=== PATIENT | female | born 1955 | race Caucasian/White ===

== ENCOUNTER → 2019-06-27 13:00 | Outpatient (CLI) | payer BC, SELFPAY ==
--- NOTE | 2019-06-27 | DI.MRI.S_ITS ---
PROCEDURE: MRFOOT LT WO CON INDICATIONS: Unspecified injury of left foot, sequela TECHNIQUE: Noncontrast sagittal T1 spin echo and T2 fast spin echo with fat saturation, long-axis T1 spin echo and T2 fast spin echo with fat saturation, short-axis T1 spin echo and T2 fast spin echo with fat saturation through the forefoot. COMPARISON: None. FINDINGS: Image quality: Excellent. Bones and joints: No bone marrow contusions or metatarsal stress fractures. The sesamoid bones appear in expected positions, without internal edema. Moderate first MTP joint degeneration. Associated small joint effusion There is also diffuse interphalangeal mild generative spurring and sclerosis. Soft tissues: The visualized plantar foot muscles demonstrate normal signal and bulk. Visualized flexor and extensor tendons appear intact, without tenosynovitis. The distal insertions of the peroneus brevis and longus tendons appear intact. The principal Lisfranc ligament appears intact. No soft tissue ganglion cysts or bursal fluid collections. Sagittal images demonstrate no evidence for plantar plate tears. IMPRESSION: Overall, no acute abnormal signal changes. No evidence of metatarsal stress fracture. Degenerative changes as above Dictated by: Cosme Zabala M.D. on 06/27/2019 at 16:55 Approved by: Cosme Zabala M.D. on 06/27/2019 at 17:00
--- NOTE | 2019-06-27 | DI.MRI.S_ITS ---
PROCEDURE: MR ANKLE LT WO CON INDICATIONS: Unspecified injury of left foot, sequela TECHNIQUE: Noncontrast sagittal T1 spin echo and T2 fast spin echo with fat saturation, axial proton density fast spin echo and T2 fast spin echo with fat saturation, coronal T1 spin echo and T2 fast spin echo with fat saturation through the ankle/hindfoot. COMPARISON: None. FINDINGS: Image quality: Excellent. Bones and joints: No bone marrow contusions or fractures. No hindfoot coalitions. No osteochondral injuries of the talar dome. No pathologic joint effusions. Medial structures: The posterior tibialis, flexor digitorum longus, and flexor hallucis longus tendons are intact. There is mild posterior tibialis tenosynovitis The posterior tibial neurovascular bundle appears normal within the tarsal tunnel, without extrinsic mass effect. The deep layer (anterior and posterior tibiotalar ligaments) and superficial layer (tibionavicular, tibiospring, and tibiocalcaneal ligaments) of the deltoid ligament appear normal. The spring ligament components (superomedial calcaneonavicular, medioplantar oblique calcaneonavicular, and inferoplantar longitudinal ligaments) are intact. Lateral structures: The anterior talofibular, calcaneofibular, and posterior talofibular ligaments appear intact. More superiorly, the anterior and posterior tibiofibular ligaments appear intact, as is the intermalleolar ligament. The tibiofibular syndesmosis is normal in width at 2 mm or less. The peroneus longus and brevis tendons demonstrate normal location and morphology. There is mild overlying superficial subcutaneous edema Adjacent bony peroneal tubercle and retrotrochlear prominence are normal in size. The sinus tarsi demonstrates normal fatty signal, without edema, fibrosis, or cyst formation. Visualized sinus tarsi components (cervical ligament, interosseous talocalcaneal ligament, roots of the inferior extensor retinaculum) appear normal. The calcaneonavicular and calcaneocuboid components of the bifurcate ligament appear intact. The dorsal calcaneocuboid ligament appears intact. Anterior structures: The tibialis anterior, extensor hallucis longus, and extensor digitorum longus tendons appear intact. The dorsal talonavicular ligament appears intact. Posterior and plantar structures: Achilles tendon is intact. Medial and lateral bands of the plantar fascia are of normal thickness. No abductor digiti quinti muscle atrophy to suggest Valentino neuropathy. IMPRESSION: Mild superficial soft tissue edema overlying the peroneus tendons which otherwise appear grossly intact. Mild posterior tibialis tenosynovitis. Minimal distal Achilles insertional tendinopathy. Mild medial band plantar fasciitis. Dictated by: Cosme Zabala M.D. on 06/27/2019 at 15:21 Approved by: Cosme Zabala M.D. on 06/27/2019 at 16:16
== END ==
PROVIDERS: Family Provider Family Medicine; PCP Family Medicine; Visit Provider Podiatrist
DX: S99.922S Unspecified injury of left foot, sequela (principal); M79.672 Pain in left foot; M65.872 Other synovitis and tenosynovitis, left ankle and foot; M72.2 Plantar fascial fibromatosis; M19.072 Primary osteoarthritis, left ankle and foot; M25.475 Effusion, left foot; M79.89 Other specified soft tissue disorders; R26.2 Difficulty in walking, not elsewhere classified; X58.XXXS Exposure to other specified factors, sequela
CPT/HCPCS: 73718; 73721

== ENCOUNTER → 2019-09-14 14:52 | Outpatient (CLI) | payer BC, SELFPAY ==
--- NOTE | 2019-09-14 | DI.US.S_ITS ---
PROCEDURE: US PELVIC COMPLETE INDICATIONS: POSTMENOPAUSAL BLEEDING TECHNIQUE: Real-time scanning was performed of the pelvic organs, with image documentation. Additional endovaginal scanning was necessary due to incomplete visualization of the adnexal and endometrial structures by transabdominal scanning. COMPARISON: None. FINDINGS: Transabdominal scanning: Limited scanning through the kidneys shows no hydronephrosis. No pathologic free abdominal or pelvic fluid. Endovaginal scanning: Uterus: Uterus is normal in size at 7.4 x 5.8 x 4.7 cm. The endometrium is abnormally thickened and heterogeneous, measuring up to 14 mm. There is a potential mass seen within the endometrial canal and measures 1.4 x 0.8 x 1 cm. Ovaries: Neither ovary can be seen. No adnexal masses are seen. IMPRESSION: The endometrial stripe is thickened in this patient with a given history of postmenopausal bleeding. Differential diagnosis includes endometrial neoplasm and endometrial hyperplasia. There is a potential endometrial mass present. Recommend correlation with endometrial histology, as clinically appropriate. Dictated by: Andriy Darden M.D. on 09/15/2019 at 13:22 Approved by: Andriy Darden M.D. on 09/15/2019 at 13:23
== END ==
PROVIDERS: Family Provider Family Medicine; PCP Family Medicine; Referring Provider Physician Assistant Medical; Visit Provider Physician Assistant Medical
DX: N95.0 Postmenopausal bleeding (principal)
CPT/HCPCS: 76830; 76856

== ENCOUNTER → 2020-03-27 12:15 | Outpatient (CLI) | payer BC, SELFPAY ==
--- NOTE | 2020-03-27 | DI.US.S_ITS ---
PROCEDURE: US PELVIC COMPLETE INDICATIONS: Postmenopausal bleeding TECHNIQUE: Real-time scanning was performed of the pelvic organs, with image documentation. Additional endovaginal scanning was necessary due to incomplete visualization of the adnexal and endometrial structures by transabdominal scanning. COMPARISON: [facility], , PELVIC COMPLETE, 09/14/2019, 15:30. FINDINGS: Transabdominal scanning: Limited scanning through the kidneys shows no hydronephrosis. No pathologic free abdominal or pelvic fluid. Endovaginal scanning: Uterus: Uterus is normal in size at 10.0 x 4.0 x 6.3 cm. The endometrium measures 11 mm in combined thickness. There is a polypoid mass or polyp measuring 7 x 14 x 6 mm. This appears grossly unchanged since the prior study from 09/15/19. There are nonspecific endometrial cystic changes Ovaries: Right ovary is not identified sonographically. Left ovary measures 2.3 x 0.8 x 1.3 cm. IMPRESSION: Thickened appearance of the endometrium in the setting of postmenopausal bleeding is still suspicious for endometrial malignancy. Recommend endometrial sampling as clinically appropriate. Additionally, redemonstrated polypoid mass/polyp within the endometrial cavity is noted, for which neoplasm cannot be excluded. Right ovary not sonographically identified Dictated by: Cosme Zabala M.D. on 03/27/2020 at 16:00 Approved by: Cosme Zabala M.D. on 03/27/2020 at 16:06
== END ==
PROVIDERS: Family Provider Family Medicine; PCP Family Medicine; Referring Provider Family Medicine; Visit Provider Obstetrics & Gynecology
DX: N95.0 Postmenopausal bleeding (principal); N85.9 Noninflammatory disorder of uterus, unspecified
CPT/HCPCS: 76830; 76856

== ENCOUNTER → 2020-07-11 12:57 | Outpatient (CLI) | payer BC, SELFPAY ==
--- NOTE | 2020-07-11 13:00 | DI.US.S_ITS ---
PROCEDURE: US PELVIC COMPLETE INDICATIONS: POSTMENOPAUSAL BLEEDING TECHNIQUE: Real-time scanning was performed of the pelvic organs, with image documentation. Additional endovaginal scanning was necessary due to incomplete visualization of the adnexal and endometrial structures by transabdominal scanning. COMPARISON: [facility], PELVIC COMPLETE, 03/27/2020, 12:29. FINDINGS: Transabdominal scanning: Limited scanning through the kidneys shows no hydronephrosis. No pathologic free abdominal or pelvic fluid. Endovaginal scanning: Uterus: Uterus is normal in size at 8.7 x 5.4 x 4.4 cm. The endometrium measures 9.3 mm in combined thickness. Small amount endometrial fluid. 8 mm complex nabothian cyst. Ovaries: Ovaries not identified. IMPRESSION: Abnormal appearance of the endometrial complex which is thickened and there is a small amount endometrial fluid. Endometrial biopsy is recommended as endometrial carcinoma cannot be excluded. Dictated by: Jonathan Monae [facility] Interpreted: Jocelyn Rust MD on 07/11/2020 at 14:30 Approved by: Jocelyn Rust M.D. on 07/11/2020 at 16:56
== END ==
PROVIDERS: Family Provider Family Medicine; PCP Nurse Practitioner; Referring Provider Obstetrics & Gynecology Gynecologic Oncology; Visit Provider Obstetrics & Gynecology Gynecologic Oncology
DX: N95.0 Postmenopausal bleeding (principal); R93.89 Abnormal findings on diagnostic imaging of other specified body structures; N88.8 Other specified noninflammatory disorders of cervix uteri
CPT/HCPCS: 76830; 76856

== ENCOUNTER → 2023-05-10 11:54 | Outpatient (CLI) | payer BC, SELFPAY ==
--- NOTE | 2023-05-10 | DI.MRI.S_ITS ---
PROCEDURE: MR CERVICAL SPINE WO CON INDICATIONS: Spinal stenosis, cervical region TECHNIQUE: Noncontrast sagittal T1 spin echo and T2 fast spin echo, sagittal STIR, foraminal oblique sagittal T2 fast spin echo, and axial gradient echo or T2 fast spin echo through the cervical spine. COMPARISON: [facility] [place], CR, XR CERVICAL SPINE 2 OR 3 VIEWS, 03/25/2023, 13:48. FINDINGS: Image quality: This examination is limited by involuntary motion artifact. Alignment and Curvature: There is straightening of the normal cervical lordosis. No focal AP alignment abnormality is seen. Bone Marrow: Marrow demonstrates normal overall signal. Spinal Cord: Visualized spinal cord has normal size and signal. No cerebellar tonsillar herniation. Paraspinous Soft Tissues: No paravertebral masses. Prevertebral soft tissues are normal in thickness. C2-C3: Level within normal limits. C3-C4: The disc height and disk signal are well-preserved. A mild degree of generalized disc osteophyte complex is seen. Mild facet joint hypertrophy is seen. There is mild right-sided and no left-sided neural foraminal narrowing. Minimal central canal narrowing is seen. C4-C5: The disc height and disk signal are relatively well-preserved. A mild degree of generalized disc osteophyte complex is seen. Moderate facet joint hypertrophy is seen. No significant neural foraminal or central canal narrowing can be seen. C5-C6: Dlkw-om-euaxrgui loss of disc height and disc signal can be seen. Moderate generalized disc osteophyte complex is seen. There is a central disc osteophyte protrusion. Uncovertebral joint hypertrophy is seen at this level. There is moderate right-sided and vnox-qy-wxnadxdn left-sided facet hypertrophy. There is moderate right-sided and at least moderate left-sided neural foraminal narrowing. Moderate central canal narrowing is seen. There is associated mass effect upon the ventral spinal cord. C6-C7: Moderate loss of disc height is seen. Loss of disc signal is seen. Moderate generalized disc osteophyte complex is seen. There is a central disc osteophyte protrusion. Uncovertebral joint hypertrophy is seen at this level. Mild facet joint hypertrophy is seen. Moderate bilateral neural foraminal narrowing is seen. Mild to moderate central canal narrowing is seen, with minimal mass effect upon the ventral spinal cord. C7-T1: The disc height and disk signal are relatively well-preserved. A mild degree of generalized disc osteophyte complex is seen. No significant neural foraminal or central canal narrowing can be seen. IMPRESSION: Multiple levels of cervical spine degenerative change can be seen, which are worst at C5-C6 and C6-C7. Straightening of the normal cervical lordosis is seen, which is commonly observed in patients with muscular spasm. Dictated by: Andriy Darden M.D. on 05/11/2023 at 11:27 Approved by: Andriy Darden M.D. on 05/11/2023 at 11:32
== END ==
PROVIDERS: Family Provider Family Medicine; PCP Family Medicine; Referring Provider Orthopaedic Surgery Orthopaedic Surgery of the Spine; Visit Provider Orthopaedic Surgery Orthopaedic Surgery of the Spine
DX: M48.02 Spinal stenosis, cervical region (principal); M40.40 Postural lordosis, site unspecified
CPT/HCPCS: 72141

== ENCOUNTER → 2023-06-09 14:47 | Outpatient (CLI) | payer BC, SELFPAY ==
--- NOTE | 2023-06-09 | DI.RAD.S_ITS ---
PROCEDURE: XR ACUTE ABDOMEN SERIES INDICATIONS: DIARRHEA TECHNIQUE: One view chest and two views of the abdomen were acquired. COMPARISON: None. FINDINGS: Surgical changes and devices: None. Chest: Lungs are clear. Heart size is normal. No pleural effusions. No pneumoperitoneum. Abdomen: Bowel gas pattern is normal. No suspicious calcifications. Visualized solid organ contours appear normal. Normal colonic stool burden. No pneumatosis, pneumoperitoneum or portal venous gas on upright view. Surgical clip in the right upper quadrant. Scattered calcified pelvic phleboliths. Bones: No suspicious bony lesions. No acute fracture. Mild multilevel degenerative changes of the spine. IMPRESSION: 1. Normal bowel gas pattern. No radiographic evidence of pneumatosis, pneumoperitoneum or portal venous gas. 2. No acute cardiopulmonary process. Dictated by: Juana Tamayo M.D. on 06/09/2023 at 19:07 Approved by: Juana Tamayo M.D. on 06/09/2023 at 19:09
== END ==
PROVIDERS: Family Provider Family Medicine; PCP Family Medicine; Referring Provider Internal Medicine Gastroenterology; Visit Provider Internal Medicine Gastroenterology
DX: R19.7 Diarrhea, unspecified (principal); A04.72 Enterocolitis due to Clostridium difficile, not specified as recurrent; K59.00 Constipation, unspecified; E66.01 Morbid (severe) obesity due to excess calories; Z68.42 Body mass index [BMI] 45.0-49.9, adult
CPT/HCPCS: 74022

== ENCOUNTER 2023-09-28 12:30 | Day surgery (SDC) | payer BC, SELFPAY ==
--- NOTE | 2023-09-28 | PATH_ITS ---
[facility] Accession Number: [id number] No. of containers..02 Tissue . 01 Material submitted: . PART A: gastrointestinal site - GASTRIC POLYPS PART B: esophagus - DISTAL ESOPHAGUS . 01 Diagnosis: A. GASTRIC POLYPS: Fundic gland polyps. No evidence of Helicobacter organisms on H/E stain. Negative for intestinal metaplasia. Negative for dysplasia and malignancy. . B. DISTAL ESOPHAGUS, BIOPSY: Proximal gastric-type mucosa with mild chronic inflammation. Negative for specialized intestinal metaplasia on alcian blue stain. Negative for dysplasia or malignancy. MRV 10/01/2023 1358 Local . 01 Electronically signed: . James Ruiz MD, PhD, Pathologist NPI- [id number] . 01 Gross description: . Part A: GASTRIC POLYPS: Received in formalin are 2 fragment(s) of ga, soft tissue measuring 0.2 x 0.2 x 0.2 cm to 0.3 x 0.3 x 0.2 cm submitted entirely in 1 cassette(s) Part B: DISTAL ESOPHAGUS: Received in formalin are 4 fragment(s) of ga, soft tissue measuring 0.1 x 0.1 x 0.1 cm to 0.3 x 0.2 x 0.2 cm submitted entirely in 1 cassette(s) /JERMAINE 09/29/2023 2152 Local . 01 Microscopic: . B. An AB/PAS stain is performed to evaluate for specialized intestinal metaplasia, and is negative for goblet cells. A control stain shows appropriate reactivity. . . 01 Pathologist provided ICD-10: K31.7, K20.80 . 01 CPT . 054776, 987928, 711031 Specimen Comment: A courtesy copy of this report has been sent to [phone] Performed at: 01 [facility] [address], [place], [place] [id number] MD Jcarlos Vizcaino MD Phone: [phone]
[2023-09-28 13:18] VITALS: BP 116/50; PULSE 70; RESP 16; TEMP 36.2; O2SAT 99
--- NOTE | 2023-09-28 13:35 | PM.HP.1 ---
History of Present Illness History of Present Illness Date Patient Seen: 09/28/23 Time Patient Seen: 13:35 Chief complaint: EGD Narrative: 68-year-old female with Barretts here for surveillance. She is doing okay on famotidine 20 mg twice daily and trying to avoid PPI in the face of prior challenges with C diff. Meds Home Medications and Allergies Home Medications Medication Instructions Recorded Confirmed Type amoxicillin 875 mg-potassium 1 tab PO BID 09/28/23 09/28/23 History clavulanate 125 mg tablet bisoprolol fumarate 5 mg tablet 2.5 mg PO DAILY 09/28/23 09/28/23 History clobetasol 0.05 % scalp solution topical 09/28/23 History diltiazem HCl 120 mg tablet 120 mg PO BID 09/28/23 09/28/23 History fluticasone propionate 50 1 spray intranasal BID 09/28/23 09/28/23 History mcg/actuation nasal spray,suspension losartan 100 mg tablet 100 mg PO ONCE PM 09/28/23 09/28/23 History metronidazole 0.75 % topical gel topical 09/28/23 History rosuvastatin 5 mg tablet 5 mg PO 09/28/23 History semaglutide 0.25 mg or 0.5 mg (2 mg SUBCUT 09/28/23 History mg/3 mL) subcutaneous pen injector (Ozempic) Allergies Allergy/AdvReac Type Severity Reaction Status Date / Time oxycodone Allergy Verified 09/28/23 12:51 Review of Systems Review of Systems ROS: Yes All systems reviewed with the patient and are negative except as otherwise documented Exam Const General: cooperative HENMT Head: normal to inspection Eyes General: appearance normal, both eyes and all related structures Neck Neck: normal visual inspection Chest Chest: normal inspection of the chest Resp Effort & Inspection: normal respiratory effort Cardio Rate: regular rate GI Inspection: normal to inspection Skin General: no rashes or lesions noted Neuro General: patient alert and patient awake Extrem General: normal to inspection and no pedal edema Psych Appearance: grossly normal Assessment & Plan Assessment & Plan narrative: 68-year-old female with a history of Barretts. EGD is pursued today.
--- NOTE | 2023-09-28 13:37 | PM.PREOP ---
Pre-operative Note Interval Note History & Physical reviewed/Exam performed by Physician: Yes Changes to H&P: No ASA Class (for procedural sedation): III
[2023-09-28] MEDS: LACTATED RINGERS 1,000 ML 42 ML IV (13:44)
--- NOTE | 2023-09-28 14:20 | PM.OP.EGD ---
Operative Date/Time/Diagnoses Date of procedure: 09/28/23 Time of procedure: 14:20 Pre-op diagnosis: Barretts esophagus Post-op diagnosis: same Procedure & Clinicians Study performed: EGD with biopsies Same procedure as scheduled: Yes Indications: Barretts esophagus Surgeon: Donovan Isaac Procedure Notes SCOAP/Timeout: Done Procedure in detail: After the risks and benefits were explained, written and verbal informed consent was obtained. The patient was brought into the procedure room and placed into the left lateral decubitus position. Please see anesthesia notes for sedation details. The scope was introduced into the mouth through the bite block and advanced under direct visualization to the 2nd portion of the duodenum. The scope was slowly withdrawn carefully examining the mucosa for any defects or lesions. Retroflexed views were accomplished in the stomach. The stomach was decompressed, the scope was then removed from the patient who tolerated the procedure well. Sedation minutes: 13 Complications: none Impression: 1. Duodenal: This was normal from the bulb through the 2nd portion. 2. Stomach: No ulcers. No outlet obstruction. No mass lesions. There were a few small benign-appearing polyps in the body. One of the larger 6 mm polyps was sampled for a advertising account representative histology. Retroflexed views of the LES were unremarkable. 3. Esophagus: The squamocolumnar junction appeared to extend slightly up into the tubular esophagus from the GE junction at 37 cm from the incisors. I would rate this as C 0.75 M 0.75. There was evidence of some mild esophagitis and a subtle sliding hiatal hernia. Four biopsies were taken from the distal esophageal probable Barretts segment. I did not appreciate any nodularity or overt suggestion of neoplasm. The remainder of the esophagus was unremarkable. Endoscopic diagnosis 1. Small sliding hiatal hernia 2. LA grade A erosive esophagitis 3. C 0 0.75 M 0.75 Barretts 4. Benign-appearing gastric polyps Post-procedure Plan for aftercare: 1. Await histology. 2. Continue anti-reflux therapy 3. Surveillance EGD will likely be suggested for 3 years. Disposition: PACU
[2023-09-28 14:22] VITALS: BP 98/56; PULSE 79; RESP 15; TEMP 36.6; O2SAT 92
[2023-09-28 14:26] VITALS: BP 104/47; PULSE 78; RESP 12; O2SAT 96
[2023-09-28 14:31] VITALS: BP 105/56; PULSE 70; RESP 12; TEMP 36.1; O2SAT 99
== END 2023-09-28 14:47 | disposition home or self-care (01) ==
PROVIDERS: Family Provider Family Medicine; PCP Family Medicine; Referring Provider Internal Medicine Gastroenterology; Visit Provider Internal Medicine Gastroenterology
PROC: 0DJ08ZZ Inspection of Upper Intestinal Tract, Via Natural or Artificial Opening Endoscopic (ICD-10-PCS; CPT 43235; principal; 2023-09-28 13:30)
DX: K22.70 Barrett's esophagus without dysplasia (principal); K31.7 Polyp of stomach and duodenum; K44.9 Diaphragmatic hernia without obstruction or gangrene
CPT/HCPCS: 43239; J2704

== ENCOUNTER → 2024-04-08 12:51 | Outpatient (CLI) | payer BC, SELFPAY ==
--- NOTE | 2024-04-08 12:53 | DI.MRI.S_ITS ---
PROCEDURE: MR KNEE LT WO CON INDICATIONS: LEFT KNEE PAIN,BOONE CYST TECHNIQUE: Noncontrast sagittal PD fast spin echo and T2 fast spin echo with fat saturation, sagittal 3-D FLASH with fat saturation; coronal T1 spin echo and PD fast spin echo with fat saturation, and axial PD fast spin echo with fat saturation through the knee. COMPARISON: [facility] [place], CR, XR KNEE ARTHRITIC SERIES BI, 03/30/2024, 13:50. FINDINGS: Image quality: Excellent. Menisci: Peripheral displacement of medial meniscus bowing medial collateral ligament. Chronic appearing complex tear throughout entire medial meniscus is noted with extension to both superior and inferior articulating surfaces. The lateral meniscus is intact. There is suggestion of moderate grade partial-thickness tear involving posterior medial meniscal root ligament. Cruciate ligaments: The anterior cruciate ligament is thickened with intrasubstance T2 hyperintense signal. The posterior cruciate ligament is intact. Medial structures: The medial collateral ligament appears mildly thickened with adjacent soft tissue edema. Visualized portions of the pes anserinus tendons appear normal. No abnormal bursal fluid. Lateral structures: The lateral collateral ligament, long and short heads of the biceps femoris tendon appear intact. The popliteus tendon appears normal. Iliotibial band appears normal. Anterior structures: Distal quadriceps tendinosis at its superior patellar insertion is seen. The patellar tendon is intact. Patellar alignment is normal. No edema in the infrapatellar fat pad. Bones and cartilage: Moderate to severe tricompartmental osteoarthritis and chondromalacia is seen most notably involving medial femoral tibial compartment. No fracture or dislocation. No suspicious bony lesions. Joint space: There is small knee joint fluid. No Boone's cyst. Normal appearing synovial plicae are incidentally noted. IMPRESSION: 1. 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 No acute fracture or dislocation. Small joint effusion, no loose bodies. 2. Chronic appearing complex tear involving entire medial meniscus extending to both superior and inferior articulating surfaces. The lateral meniscus is intact. Moderate grade partial-thickness tear involving posterior medial meniscal root ligament. 3. Myxoid degenerative changes involving anterior cruciate ligament. No ACL rupture. The PCL is intact. 4. Low-grade MCL sprain. 5. Distal quadriceps tendinosis. The patellar tendon is intact. Dictated by: Monty Johnson M.D. on 04/08/2024 at 17:50 Approved by: Monty Johnson M.D. on 04/08/2024 at 17:54
== END ==
PROVIDERS: Family Provider Family Medicine; PCP Family Medicine; Referring Provider Orthopaedic Surgery; Visit Provider Orthopaedic Surgery
DX: M17.12 Unilateral primary osteoarthritis, left knee (principal); M94.262 Chondromalacia, left knee; M25.462 Effusion, left knee; S83.242A Other tear of medial meniscus, current injury, left knee, initial encounter; S83.412A Sprain of medial collateral ligament of left knee, initial encounter; M25.562 Pain in left knee
CPT/HCPCS: 73721

== ENCOUNTER → 2024-06-10 13:13 | Outpatient (CLI) | payer BC, SELFPAY ==
--- NOTE | 2024-06-10 13:14 | DI.MRI.S_ITS ---
PROCEDURE: MR ANKLE LT WO CON INDICATIONS: STRESS REACTION OF BONE TECHNIQUE: Noncontrast sagittal T1 spin echo and T2 fast spin echo with fat saturation, axial proton density fast spin echo and T2 fast spin echo with fat saturation, coronal T1 spin echo and T2 fast spin echo with fat saturation through the ankle/hindfoot. COMPARISON: [facility] [place], CR, XR ANKLE 3 VIEWS WEIGHT BEARING LEFT, 05/27/2024, 14:59. [facility], MR, MR ANKLE LT WO CON, 06/27/2019, 13:20. FINDINGS: Image quality: Excellent. Bones and joints: No acute trabecular bone injury or fracture. No hindfoot coalitions. No osteochondral injuries of the talar dome. Small nonedematous posterior and plantar calcaneal enthesophytes. Medial structures: The deltoid ligament and the spring ligament complex are intact. Mild tenosynovitis of the distal posterior tibialis tendon. The flexor digitorum longus and flexor hallucis longus tendons are intact flexor digitorum longus, and flexor hallucis longus tendons are intact. The posterior tibial neurovascular bundle appears normal within the tarsal tunnel, without extrinsic mass effect. Lateral structures: Remote prior low-grade sprain of the anterior talofibular ligament. The calcaneofibular ligament and posterior talofibular ligament are intact. The anterior and posterior tibiofibular ligaments are intact. Moderate peroneus brevis and longus tendinosis. The sinus tarsi demonstrates normal fatty signal. Anterior structures: The tibialis anterior, extensor hallucis longus, and extensor digitorum longus tendons appear intact. Posterior and plantar structures: Mild Achilles tendinosis. The proximal plantar fascia is mildly thickened without surrounding edema. No abductor digiti minimi muscle atrophy to suggest Valentino neuropathy. IMPRESSION: 1. No acute trabecular bone injury or acute stress reaction. 2. Remote prior low-grade sprain of the anterior talofibular ligament. 3. Moderate peroneus brevis and longus tendinosis. 4. Mild distal posterior tibialis tenosynovitis. 5. Mild Achilles tendinosis. 6. Mild chronic proximal plantar fasciitis Approved by: Jim Casanova M.D. on 06/11/2024 at 20:26
== END ==
PROVIDERS: Family Provider Family Medicine; PCP Family Medicine; Referring Provider Orthopaedic Surgery Foot and Ankle Surgery; Visit Provider Orthopaedic Surgery Foot and Ankle Surgery
DX: S93.492A Sprain of other ligament of left ankle, initial encounter (principal); M65.972 Unspecified synovitis and tenosynovitis, left ankle and foot; M72.2 Plantar fascial fibromatosis; M84.30XA Stress fracture, unspecified site, initial encounter for fracture
CPT/HCPCS: 73721

== ENCOUNTER → 2024-08-24 12:48 | Outpatient (CLI) | payer BC, SELFPAY ==
--- NOTE | 2024-08-24 12:50 | DI.MG.S_ITS ---
BILATERAL DIGITAL SCREENING MAMMOGRAM 3D/2D WITH CAD: 08/24/2024 CLINICAL: Routine screening. Comparison is made to exams dated: 08/20/2022 mammogram, 03/11/2021 mammogram, and 04/19/2020 mammogram - [facility]. The breasts are heterogeneously dense, which may obscure small masses (category c / 51-75% glandular tissue). Current study was also evaluated with a Computer Aided Detection (CAD) system. There are benign calcifications in both breasts. No significant masses, calcifications, or other findings are seen in either breast. There has been no significant interval change. IMPRESSION: BENIGN There is no mammographic evidence of malignancy. A 1 year screening mammogram is recommended. Based on the Tyrer Cuzick model (a risk assessment model) the patient's lifetime risk is 7.1% and her 10 year risk is 4.2%. According to the ACR, ACS, and NCCN guidelines, an annual breast MRI exam along with mammogram is recommended if the patient's lifetime risk is 20% or greater. This exam was interpreted at Station ID: [id number]. NOTE: For mammograms, a report in lay terms will be sent to the patient. Approximately 15% of breast malignancies will not be visualized mammographically. In the management of a palpable breast mass, a negative mammogram must not discourage biopsy of a clinically suspicious lesion. Electronically Signed By: Carmelo [email or web address]:08/24/2024 18:48:10 letter sent: Normal Exam ACR BI-RADS Category 2: Benign
== END ==
PROVIDERS: Family Provider Family Medicine; PCP Family Medicine; Referring Provider Family Medicine; Visit Provider Family Medicine
DX: Z12.31 Encounter for screening mammogram for malignant neoplasm of breast (principal)
CPT/HCPCS: 77063; 77067

== ENCOUNTER → 2025-07-23 10:46 | Outpatient (CLI) | payer BC, SELFPAY | PROVIDERS: Family Provider Family Medicine; PCP Family Medicine; Visit Provider Chiropractor | DX: R39.15 Urgency of urination (principal) | CPT/HCPCS: 87086 ==